=== PATIENT | female | born 1955 | race Caucasian/White ===

== ENCOUNTER 2022-07-18 20:16 | Inpatient (IN) | payer MEDICARE, OTHER ==
[~2022-07-18] VITALS: Ht 152.4 cm; Wt 57.2 kg
[2022-07-18] MEDS ORDERED: HALOPERIDOL LACTATE 5 MG/1 ML VIAL IM ONE (21:00)
[2022-07-18] MEDS ORDERED: diphenhydrAMINE 50 MG/1 ML VIAL IM ONE (21:00)
[2022-07-18] MEDS ORDERED: LORAZEPAM 2 MG/1 ML VIAL IM ONE (21:00)
[2022-07-18] MEDS ORDERED: LORAZEPAM 2 MG/1 ML VIAL ONE (21:02)
[2022-07-18] MEDS ORDERED: diphenhydrAMINE 50 MG/1 ML VIAL ONE (21:03)
[2022-07-18] MEDS ORDERED: HALOPERIDOL LACTATE 5 MG/1 ML VIAL ONE (21:04)
[2022-07-18 22:37] LABS: HEMATOCRIT 32.9 % (31.2-41.9); MEAN CORPUSCULAR HEMOGLOBIN 31.1 uug (24.7-32.8); MEAN CORPUSCULAR VOLUME 91.6 fL (75.5-95.3); PLATELET COUNT (AUTO) 178 K/uL (179-408)
[2022-07-18 22:50] LABS: ETHANOL < 3 MG/DL (0-0)
[2022-07-18 22:51] LABS: CARBON DIOXIDE 30 mmol/L (21-32); CHLORIDE 103 mmol/L (98-107); CREATININE 0.8 mg/dL (0.6-1.3); GLUCOSE 113 mg/dL (74-106); POTASSIUM 3.4 mmol/L (3.5-5.1); UREA NITROGEN, BLOOD 21 mg/dL (7-18)
[2022-07-18 22:52] LABS: MAGNESIUM 1.4 mg/dL (1.8-2.4)
[2022-07-18 22:56] LABS: ALANINE AMINOTRANSFERASE 12 U/L (14-59); ALKALINE PHOSPHATASE 51 U/L (50-136); ASPARTATE AMINOTRANSFERASE 8 U/L (15-37); BILIRUBIN,DIRECT 0.1 mg/dL (0.0-0.2); BILIRUBIN,TOTAL 0.3 mg/dL (0.2-1.0); TOTAL PROTEIN, SERUM 6.4 g/dL (6.4-8.2)
[2022-07-18 23:00] LABS: ACETAMINOPHEN < 2.0 ug/mL (10-30)
[2022-07-18] MEDS: POTASSIUM CHLORIDE 50 ML IV SCH (23:15)
[2022-07-18] MEDS: MAGNESIUM SULFATE/D5W 100 ML IV SCH (23:15)
[2022-07-19 00:07] LABS: *BILIRUBIN,URIN NEGATIVE (NEGATIVE); *BLOOD, URINE NEGATIVE (NEGATIVE); *CLARITY,URINE CLEAR (CLEAR); *COLOR,URINE YELLOW (YELLOW); *KETONES,URINE NEGATIVE (NEGATIVE); *UROBILINOGEN,URINE 0.2 E.U./dl (NORMAL); LEUKOCYTE ESTERASE ,URINE NEGATIVE (NEGATIVE); NITRITE, URINE NEGATIVE (NEGATIVE); PH,URINE 7.5 (5.0-8.0); UGLUCOSE NEGATIVE (NEGATIVE)
[2022-07-19] MEDS: MAGNESIUM SULFATE/D5W 100 ML IV SCH ×2 (00:15→05:50)
[2022-07-19] MEDS: POTASSIUM CHLORIDE 50 ML IV SCH ×3 (00:15→02:15)
[2022-07-19 00:17] LABS: *AMPHETAMINE, URINE NEGATIVE (NEGATIVE); *CANNABINOID, URINE NEGATIVE (NEGATIVE); *COCCAINE, URINE NEGATIVE (NEGATIVE); *PHENCYCLIDINE SCREEN,URINE NEGATIVE (NEGATIVE)
[2022-07-19] MEDS ORDERED: POTASSIUM CHLORIDE 50 ML ONE ×2 (01:06→02:17)
[2022-07-19] MEDS ORDERED: MAGNESIUM SULFATE/D5W 100 ML ONE (01:06)
[2022-07-19] MEDS ORDERED: MAGNESIUM SULFATE/D5W 200 ML ONE (02:18)
[2022-07-19] MEDS ORDERED: COGENTIN PO (02:28)
[2022-07-19] MEDS ORDERED: HYDR12.55 PO (02:28)
[2022-07-19] MEDS ORDERED: BISA10SU61 RC (02:28)
[2022-07-19] MEDS ORDERED: METF-441 PO (02:28)
[2022-07-19] MEDS ORDERED: LINA5TAB PO (02:28)
[2022-07-19] MEDS ORDERED: ACET-73 PO (02:28)
[2022-07-19] MEDS ORDERED: DIVA125C2 PO (02:28)
[2022-07-19] MEDS ORDERED: QUET25TA PO (02:28)
[2022-07-19] MEDS ORDERED: CYAN100T44 PO (02:28)
[2022-07-19] MEDS ORDERED: METO25TA6 PO (02:28)
[2022-07-19] MEDS ORDERED: BUSP10TA3 PO (02:28)
[2022-07-19] MEDS ORDERED: MAGN400C PO (02:28)
[2022-07-19] MEDS ORDERED: FAMO-132 PO (02:28)
[2022-07-19] MEDS ORDERED: MAGN400O6 PO (02:28)
[2022-07-19] MEDS ORDERED: MULT-594 PO (02:28)
[2022-07-19] MEDS ORDERED: NA P133E RC (02:28)
[2022-07-19] MEDS ORDERED: LACT10SO3 PO (02:28)
[2022-07-19] MEDS ORDERED: POTASSIUM BICARBONATE/CIT AC 25 MEQ TABLET.EFF PO ONE (04:00)
[2022-07-19] MEDS ORDERED: POTASSIUM BICARBONATE/CIT AC 25 MEQ TABLET.EFF ONE (04:13)
[2022-07-19] MEDS ORDERED: FLUORESCEIN SODIUM 1 MG STRIP ONE (07:57)
[2022-07-19] MEDS ORDERED: TETRACAINE HCL 0.5% OPHT DROP 2 ML BOTTLE ONE (07:57)
[2022-07-19 13:15] VITALS: BP 133/75
[2022-07-19] MEDS ORDERED: MAG HYDROX/AL HYDROX/SIMETH 30 ML LIQUID UDC PO PRN (13:30)
[2022-07-19] MEDS ORDERED: MAGNESIUM HYDROXIDE 30 ML LIQUID UDC PO PRN (13:30)
[2022-07-19] MEDS ORDERED: BLOOD SUGAR DIAGNOSTIC 1 EACH STRIP VI ONE (13:30)
[2022-07-19] MEDS ORDERED: LORAZEPAM 0.5 MG TABLET PO PRN (13:30)
[2022-07-19] MEDS: LORAZEPAM 1 MG TABLET PO PRN ×2 (14:07→20:30)
[2022-07-19 15:04] VITALS: BP 132/61
[2022-07-19] MEDS: OLANZAPINE ZYDIS 5 MG TAB.RAPDIS PO SCH (20:30)
[2022-07-19 20:35] VITALS: BP 141/72
[2022-07-20] MEDS: LORAZEPAM 1 MG TABLET PO PRN ×2 (05:41→15:33)
[2022-07-20 07:30] VITALS: BP_SYST 133; BP_SYST 142; BP_DIAS 53; BP_DIAS 75
[2022-07-20] MEDS: busPIRone 10 MG TABLET PO SCH ×2 (12:19→16:28)
[2022-07-20] MEDS: DIVALPROEX SPRINKLE 125 MG CAP.SPRINK PO SCH ×2 (12:19→20:28)
[2022-07-20 16:00] VITALS: BP 142/53
[2022-07-20 20:23] VITALS: BP 113/53
[2022-07-20] MEDS: OLANZAPINE ZYDIS 5 MG TAB.RAPDIS PO SCH (20:28)
[2022-07-20] MEDS: TEMAZEPAM 7.5 MG CAPSULE PO PRN (22:06)
[2022-07-21 07:30] VITALS: BP 121/71
[2022-07-21] MEDS: LORAZEPAM 1 MG TABLET PO PRN ×3 (07:51→21:35)
[2022-07-21] MEDS ORDERED: MAGNESIUM HYDROXIDE 30 ML LIQUID UDC PO PRN (09:00)
[2022-07-21] MEDS ORDERED: Medication Not On Formulary EA (Multivitamins (Multivitamin) 1 TAB) PO SCH (09:00)
[2022-07-21] MEDS ORDERED: Medication Not On Formulary EA (Lactulose (Duphalac) 30 ML) PO SCH (09:00)
[2022-07-21] MEDS ORDERED: Medication Not On Formulary EA (Hydrochlorothiazide 12.5 MG) PO SCH (09:00)
[2022-07-21] MEDS ORDERED: FLEET ENEMA 133 ML BOTTLE RC PRN (09:00)
[2022-07-21] MEDS ORDERED: BISACODYL 10 MG SUPP.RECT RC PRN (09:00)
[2022-07-21] MEDS ORDERED: CYANOCOBALAMIN 100 MCG TABLET PO SCH (09:00)
[2022-07-21] MEDS: FAMOTIDINE 20 MG TABLET PO SCH (09:14)
[2022-07-21] MEDS: MULTIVITAMINS,THERAPEUTIC TABLET PO SCH (09:14)
[2022-07-21] MEDS: DIVALPROEX SPRINKLE 125 MG CAP.SPRINK PO SCH ×2 (09:14→20:44)
[2022-07-21] MEDS: LINAGLIPTIN 5 MG TABLET PO SCH (09:14)
[2022-07-21] MEDS: LACTULOSE 20 G/30 ML LIQUID UDC PO SCH ×2 (09:15→16:25)
[2022-07-21] MEDS: busPIRone 10 MG TABLET PO SCH ×2 (09:15→16:25)
[2022-07-21] MEDS: METOPROLOL TARTRATE 25 MG TABLET PO SCH ×2 (09:16→20:46)
[2022-07-21] MEDS: MAGNESIUM OXIDE 400 MG TABLET PO SCH ×2 (09:16→16:27)
[2022-07-21] MEDS: CYANOCOBALAMIN 1,000 MCG TABLET PO SCH (09:35)
[2022-07-21] MEDS: HYDROCHLOROTHIAZIDE 12.5 MG CAPSULE PO SCH (09:36)
[2022-07-21] MEDS: METFORMIN HCL 850 MG TABLET PO SCH ×2 (09:36→17:17)
[2022-07-21] MEDS: GLUCERNA SHAKE 237 ML CAN PO SCH ×2 (12:50→16:28)
[2022-07-21 16:00] VITALS: BP 118/61
[2022-07-21 20:28] VITALS: BP 121/67
[2022-07-21] MEDS: OLANZAPINE ZYDIS 5 MG TAB.RAPDIS PO SCH (20:46)
[2022-07-21] MEDS: REMEDY ESSENTIAL ZINC PASTE 113 GM TOP SCH (21:26)
[2022-07-22 08:00] VITALS: BP 128/57
[2022-07-22] MEDS: DIVALPROEX SPRINKLE 125 MG CAP.SPRINK PO SCH ×2 (08:18→20:06)
[2022-07-22] MEDS: MAGNESIUM OXIDE 400 MG TABLET PO SCH ×2 (08:18→16:19)
[2022-07-22] MEDS: MULTIVITAMINS,THERAPEUTIC TABLET PO SCH (08:18)
[2022-07-22] MEDS: LINAGLIPTIN 5 MG TABLET PO SCH (08:18)
[2022-07-22] MEDS: METOPROLOL TARTRATE 25 MG TABLET PO SCH ×2 (08:19→20:06)
[2022-07-22] MEDS: LORAZEPAM 1 MG TABLET PO PRN ×3 (08:19→20:06)
[2022-07-22] MEDS: CYANOCOBALAMIN 1,000 MCG TABLET PO SCH (08:20)
[2022-07-22] MEDS: busPIRone 10 MG TABLET PO SCH ×2 (08:20→16:17)
[2022-07-22] MEDS: GLUCERNA SHAKE 237 ML CAN PO SCH ×3 (08:21→16:22)
[2022-07-22] MEDS: LACTULOSE 20 G/30 ML LIQUID UDC PO SCH ×2 (08:40→16:23)
[2022-07-22] MEDS: HYDROCHLOROTHIAZIDE 12.5 MG CAPSULE PO SCH (08:58)
[2022-07-22] MEDS: REMEDY ESSENTIAL ZINC PASTE 113 GM TOP SCH ×2 (08:58→20:07)
[2022-07-22] MEDS: METFORMIN HCL 850 MG TABLET PO SCH ×2 (08:58→18:36)
[2022-07-22] MEDS: FAMOTIDINE 20 MG TABLET PO SCH (09:20)
[2022-07-22 15:13] LABS: CREATININE 0.8 mg/dL (0.6-1.3); POTASSIUM 3.9 mmol/L (3.5-5.1)
[2022-07-22 16:05] VITALS: BP 125/51
[2022-07-22 19:56] VITALS: BP 122/62
[2022-07-22] MEDS: OLANZAPINE ZYDIS 5 MG TAB.RAPDIS PO SCH (20:06)
[2022-07-23] MEDS: HYDROCHLOROTHIAZIDE 12.5 MG CAPSULE PO SCH (08:17)
[2022-07-23] MEDS: CYANOCOBALAMIN 1,000 MCG TABLET PO SCH (08:20)
[2022-07-23] MEDS: DIVALPROEX SPRINKLE 125 MG CAP.SPRINK PO SCH ×2 (08:20→20:02)
[2022-07-23] MEDS: busPIRone 10 MG TABLET PO SCH ×2 (08:20→16:23)
[2022-07-23] MEDS: MAGNESIUM OXIDE 400 MG TABLET PO SCH ×2 (08:20→16:27)
[2022-07-23] MEDS: FAMOTIDINE 20 MG TABLET PO SCH (08:20)
[2022-07-23] MEDS: LACTULOSE 20 G/30 ML LIQUID UDC PO SCH (08:23)
[2022-07-23] MEDS: METOPROLOL TARTRATE 25 MG TABLET PO SCH ×2 (08:35→20:02)
[2022-07-23] MEDS: LINAGLIPTIN 5 MG TABLET PO SCH (08:35)
[2022-07-23] MEDS: REMEDY ESSENTIAL ZINC PASTE 113 GM TOP SCH ×2 (08:36→20:03)
[2022-07-23] MEDS: MULTIVITAMINS,THERAPEUTIC TABLET PO SCH (08:36)
[2022-07-23] MEDS: METFORMIN HCL 850 MG TABLET PO SCH ×2 (08:37→17:16)
[2022-07-23] MEDS: GLUCERNA SHAKE 237 ML CAN PO SCH ×3 (08:39→16:25)
[2022-07-23 08:54] VITALS: BP 135/85
[2022-07-23] MEDS: LORAZEPAM 1 MG TABLET PO PRN ×3 (09:39→20:02)
[2022-07-23] MEDS ORDERED: LACTULOSE 20 G/30 ML LIQUID UDC PO PRN (09:45)
[2022-07-23] MEDS: ACETAMINOPHEN 325 MG TABLET PO PRN ×2 (11:03→21:41)
[2022-07-23 15:16] VITALS: BP 120/58
[2022-07-23] MEDS: OLANZAPINE ZYDIS 5 MG TAB.RAPDIS PO SCH (20:02)
[2022-07-23 20:03] VITALS: BP 141/62
[2022-07-23] MEDS: TEMAZEPAM 7.5 MG CAPSULE PO PRN (21:41)
[2022-07-24 07:38] VITALS: BP 145/75
[2022-07-24] MEDS: ACETAMINOPHEN 325 MG TABLET PO PRN (07:57)
[2022-07-24] MEDS: LORAZEPAM 1 MG TABLET PO PRN ×2 (07:57→21:11)
[2022-07-24] MEDS: busPIRone 10 MG TABLET PO SCH ×2 (08:17→16:31)
[2022-07-24] MEDS: METOPROLOL TARTRATE 25 MG TABLET PO SCH ×2 (08:17→21:12)
[2022-07-24] MEDS: DIVALPROEX SPRINKLE 125 MG CAP.SPRINK PO SCH ×2 (08:17→21:11)
[2022-07-24] MEDS: CYANOCOBALAMIN 1,000 MCG TABLET PO SCH (08:18)
[2022-07-24] MEDS: HYDROCHLOROTHIAZIDE 12.5 MG CAPSULE PO SCH (08:18)
[2022-07-24] MEDS: METFORMIN HCL 850 MG TABLET PO SCH ×2 (08:18→17:03)
[2022-07-24] MEDS: FAMOTIDINE 20 MG TABLET PO SCH (08:18)
[2022-07-24] MEDS: LINAGLIPTIN 5 MG TABLET PO SCH (08:18)
[2022-07-24] MEDS: MAGNESIUM OXIDE 400 MG TABLET PO SCH ×2 (08:20→16:31)
[2022-07-24] MEDS: GLUCERNA SHAKE 237 ML CAN PO SCH ×3 (08:20→16:33)
[2022-07-24] MEDS: OLANZAPINE ZYDIS 5 MG TAB.RAPDIS PO SCH ×2 (08:20→16:31)
[2022-07-24] MEDS: MULTIVITAMINS,THERAPEUTIC TABLET PO SCH (08:21)
[2022-07-24] MEDS: REMEDY ESSENTIAL ZINC PASTE 113 GM TOP SCH ×2 (08:21→21:13)
[2022-07-24 11:33] LABS: HEMATOCRIT 37.2 % (31.2-41.9); MEAN CORPUSCULAR HEMOGLOBIN 30.5 uug (24.7-32.8); MEAN CORPUSCULAR VOLUME 92.1 fL (75.5-95.3); PLATELET COUNT (AUTO) 203 K/uL (179-408)
[2022-07-24 12:01] LABS: BILIRUBIN,DIRECT 0.1 mg/dL (0.0-0.2); BILIRUBIN,TOTAL 0.2 mg/dL (0.2-1.0); CREATININE 0.7 mg/dL (0.6-1.3); MAGNESIUM 1.5 mg/dL (1.8-2.4); PHOSPHOROUS 3.6 mg/dL (2.5-4.9); POTASSIUM 4.2 mmol/L (3.5-5.1); TOTAL PROTEIN, SERUM 6.9 g/dL (6.4-8.2)
[2022-07-24 16:00] VITALS: BP 114/62
[2022-07-24 20:10] VITALS: BP 152/66
[2022-07-24] MEDS: TEMAZEPAM 7.5 MG CAPSULE PO PRN (21:36)
[2022-07-25 07:50] VITALS: BP 134/65
[2022-07-25] MEDS: LORAZEPAM 1 MG TABLET PO PRN (08:24)
[2022-07-25] MEDS: ACETAMINOPHEN 325 MG TABLET PO PRN (08:24)
[2022-07-25] MEDS: METOPROLOL TARTRATE 25 MG TABLET PO SCH ×2 (08:49→20:37)
[2022-07-25] MEDS: HYDROCHLOROTHIAZIDE 12.5 MG CAPSULE PO SCH (08:49)
[2022-07-25] MEDS: METFORMIN HCL 850 MG TABLET PO SCH ×2 (08:49→17:20)
[2022-07-25] MEDS: busPIRone 10 MG TABLET PO SCH ×2 (08:49→16:25)
[2022-07-25] MEDS: DIVALPROEX SPRINKLE 125 MG CAP.SPRINK PO SCH ×2 (08:49→20:38)
[2022-07-25] MEDS: MAGNESIUM OXIDE 400 MG TABLET PO SCH ×2 (08:50→16:25)
[2022-07-25] MEDS: OLANZAPINE ZYDIS 5 MG TAB.RAPDIS PO SCH ×2 (08:50→16:25)
[2022-07-25] MEDS: LINAGLIPTIN 5 MG TABLET PO SCH (08:50)
[2022-07-25] MEDS: FAMOTIDINE 20 MG TABLET PO SCH (08:50)
[2022-07-25] MEDS: CYANOCOBALAMIN 1,000 MCG TABLET PO SCH (08:51)
[2022-07-25] MEDS: GLUCERNA SHAKE 237 ML CAN PO SCH ×3 (08:51→16:26)
[2022-07-25] MEDS: MULTIVITAMINS,THERAPEUTIC TABLET PO SCH (08:52)
[2022-07-25] MEDS: REMEDY ESSENTIAL ZINC PASTE 113 GM TOP SCH ×2 (08:52→20:38)
[2022-07-25 15:09] VITALS: BP 114/56
[2022-07-25 20:00] VITALS: BP 118/49
[2022-07-25 21:33] VITALS: BP 118/49
[2022-07-25] MEDS: TEMAZEPAM 7.5 MG CAPSULE PO PRN (22:18)
[2022-07-26 07:54] VITALS: BP 127/49
[2022-07-26] MEDS: DIVALPROEX SPRINKLE 125 MG CAP.SPRINK PO SCH ×2 (09:00→20:18)
[2022-07-26] MEDS: METFORMIN HCL 850 MG TABLET PO SCH ×2 (09:01→17:21)
[2022-07-26] MEDS: busPIRone 10 MG TABLET PO SCH ×2 (09:01→17:21)
[2022-07-26] MEDS: CYANOCOBALAMIN 1,000 MCG TABLET PO SCH (09:01)
[2022-07-26] MEDS: FAMOTIDINE 20 MG TABLET PO SCH (09:01)
[2022-07-26] MEDS: GLUCERNA SHAKE 237 ML CAN PO SCH ×3 (09:02→17:19)
[2022-07-26] MEDS: HYDROCHLOROTHIAZIDE 12.5 MG CAPSULE PO SCH (09:03)
[2022-07-26] MEDS: MAGNESIUM OXIDE 400 MG TABLET PO SCH ×2 (09:03→17:23)
[2022-07-26] MEDS: MULTIVITAMINS,THERAPEUTIC TABLET PO SCH (09:12)
[2022-07-26] MEDS: METOPROLOL TARTRATE 25 MG TABLET PO SCH ×2 (09:12→20:18)
[2022-07-26] MEDS: OLANZAPINE ZYDIS 5 MG TAB.RAPDIS PO SCH ×2 (09:12→17:21)
[2022-07-26] MEDS: REMEDY ESSENTIAL ZINC PASTE 113 GM TOP SCH ×2 (09:13→21:14)
[2022-07-26] MEDS: LINAGLIPTIN 5 MG TABLET PO SCH (09:15)
[2022-07-26 16:00] VITALS: BP 108/55
[2022-07-26] MEDS: LORAZEPAM 1 MG TABLET PO PRN (19:44)
[2022-07-26] MEDS: ACETAMINOPHEN 325 MG TABLET PO PRN (20:18)
[2022-07-26 20:46] VITALS: BP 131/55
[2022-07-26] MEDS: TEMAZEPAM 7.5 MG CAPSULE PO PRN (21:14)
[2022-07-27 02:56] LABS: *BILIRUBIN,URIN NEGATIVE (NEGATIVE); *BLOOD, URINE 3+ (NEGATIVE); *COLOR,URINE YELLOW (YELLOW); *KETONES,URINE NEGATIVE (NEGATIVE); *UROBILINOGEN,URINE 0.2 E.U./dl (NORMAL); LEUKOCYTE ESTERASE ,URINE 2+ (NEGATIVE); NITRITE, URINE NEGATIVE (NEGATIVE); UGLUCOSE NEGATIVE (NEGATIVE)
[2022-07-27 02:57] LABS: *CLARITY,URINE CLOUDY (CLEAR)
[2022-07-27 02:59] LABS: BACTERIA,URINE MANY /HPF (NONE SEEN); RBC,URINE TNTC /HPF (0-3); SQUAMOUS EPITHELIAL CELL,UR MANY /HPF (NONE SEEN); WBC,URINE 50-80 /HPF (0-3)
[2022-07-27 07:30] VITALS: BP 106/53
[2022-07-27] MEDS: LINAGLIPTIN 5 MG TABLET PO SCH (08:31)
[2022-07-27] MEDS: METFORMIN HCL 850 MG TABLET PO SCH ×2 (08:31→17:32)
[2022-07-27] MEDS: DIVALPROEX SPRINKLE 125 MG CAP.SPRINK PO SCH ×2 (08:31→20:20)
[2022-07-27] MEDS: FAMOTIDINE 20 MG TABLET PO SCH (08:32)
[2022-07-27] MEDS: CYANOCOBALAMIN 1,000 MCG TABLET PO SCH (08:33)
[2022-07-27] MEDS: OLANZAPINE ZYDIS 5 MG TAB.RAPDIS PO SCH ×2 (08:33→17:29)
[2022-07-27] MEDS: REMEDY ESSENTIAL ZINC PASTE 113 GM TOP SCH ×2 (08:33→20:20)
[2022-07-27] MEDS: HYDROCHLOROTHIAZIDE 12.5 MG CAPSULE PO SCH (08:34)
[2022-07-27] MEDS: METOPROLOL TARTRATE 25 MG TABLET PO SCH ×2 (08:35→20:20)
[2022-07-27] MEDS: MAGNESIUM OXIDE 400 MG TABLET PO SCH ×2 (08:35→17:30)
[2022-07-27] MEDS: MULTIVITAMINS,THERAPEUTIC TABLET PO SCH (08:38)
[2022-07-27] MEDS: busPIRone 10 MG TABLET PO SCH ×2 (08:38→17:31)
[2022-07-27] MEDS: GLUCERNA SHAKE 237 ML CAN PO SCH ×3 (08:39→17:31)
[2022-07-27] MEDS: LORAZEPAM 1 MG TABLET PO PRN ×2 (11:15→20:20)
[2022-07-27] MEDS: CEphaleXIN 500 MG CAPSULE PO SCH ×2 (14:10→21:31)
[2022-07-27 17:11] VITALS: BP 121/57
[2022-07-27 20:46] VITALS: BP 119/54
[2022-07-27] MEDS: ACETAMINOPHEN 325 MG TABLET PO PRN (21:31)
[2022-07-27] MEDS: TEMAZEPAM 7.5 MG CAPSULE PO PRN (21:31)
[2022-07-28] MEDS: LORAZEPAM 1 MG TABLET PO PRN (01:41)
[2022-07-28] MEDS: CEphaleXIN 500 MG CAPSULE PO SCH ×3 (06:08→21:06)
[2022-07-28 07:30] VITALS: BP 135/58
[2022-07-28] MEDS: DIVALPROEX SPRINKLE 125 MG CAP.SPRINK PO SCH ×2 (08:34→20:36)
[2022-07-28] MEDS: FAMOTIDINE 20 MG TABLET PO SCH (08:35)
[2022-07-28] MEDS: CYANOCOBALAMIN 1,000 MCG TABLET PO SCH (08:35)
[2022-07-28] MEDS: METFORMIN HCL 850 MG TABLET PO SCH ×2 (08:35→17:05)
[2022-07-28] MEDS: busPIRone 10 MG TABLET PO SCH ×2 (08:35→17:02)
[2022-07-28] MEDS: HYDROCHLOROTHIAZIDE 12.5 MG CAPSULE PO SCH (08:36)
[2022-07-28] MEDS: MAGNESIUM OXIDE 400 MG TABLET PO SCH ×2 (08:37→17:03)
[2022-07-28] MEDS: METOPROLOL TARTRATE 25 MG TABLET PO SCH ×2 (08:37→20:36)
[2022-07-28] MEDS: MULTIVITAMINS,THERAPEUTIC TABLET PO SCH (08:38)
[2022-07-28] MEDS: LINAGLIPTIN 5 MG TABLET PO SCH (08:38)
[2022-07-28] MEDS: OLANZAPINE ZYDIS 5 MG TAB.RAPDIS PO SCH ×2 (08:39→17:05)
[2022-07-28] MEDS: REMEDY ESSENTIAL ZINC PASTE 113 GM TOP SCH ×2 (08:40→20:41)
[2022-07-28] MEDS: GLUCERNA SHAKE 237 ML CAN PO SCH ×3 (08:42→17:03)
[2022-07-28 16:00] VITALS: BP 115/51
[2022-07-28 20:02] VITALS: BP 120/65
[2022-07-28] MEDS: TEMAZEPAM 7.5 MG CAPSULE PO PRN (21:05)
[2022-07-29] MEDS: CEphaleXIN 500 MG CAPSULE PO SCH ×3 (06:12→21:22)
[2022-07-29 07:37] VITALS: BP 132/56
[2022-07-29] MEDS: METFORMIN HCL 850 MG TABLET PO SCH ×2 (08:20→17:32)
[2022-07-29] MEDS: GLUCERNA SHAKE 237 ML CAN PO SCH ×3 (08:20→17:31)
[2022-07-29] MEDS: busPIRone 10 MG TABLET PO SCH ×2 (08:21→17:32)
[2022-07-29] MEDS: DIVALPROEX SPRINKLE 125 MG CAP.SPRINK PO SCH ×2 (08:21→20:09)
[2022-07-29] MEDS: METOPROLOL TARTRATE 25 MG TABLET PO SCH ×2 (08:22→20:09)
[2022-07-29] MEDS: MULTIVITAMINS,THERAPEUTIC TABLET PO SCH (08:23)
[2022-07-29] MEDS: HYDROCHLOROTHIAZIDE 12.5 MG CAPSULE PO SCH (08:23)
[2022-07-29] MEDS: FAMOTIDINE 20 MG TABLET PO SCH (08:23)
[2022-07-29] MEDS: CYANOCOBALAMIN 1,000 MCG TABLET PO SCH (08:24)
[2022-07-29] MEDS: OLANZAPINE ZYDIS 5 MG TAB.RAPDIS PO SCH ×2 (08:24→17:32)
[2022-07-29] MEDS: LINAGLIPTIN 5 MG TABLET PO SCH (08:24)
[2022-07-29] MEDS: MAGNESIUM OXIDE 400 MG TABLET PO SCH ×2 (08:26→17:35)
[2022-07-29] MEDS: REMEDY ESSENTIAL ZINC PASTE 113 GM TOP SCH ×2 (08:27→20:11)
[2022-07-29 16:32] VITALS: BP 129/44
[2022-07-29 20:00] VITALS: BP 127/68
[2022-07-29] MEDS: LORAZEPAM 1 MG TABLET PO PRN (21:15)
[2022-07-29] MEDS: TEMAZEPAM 7.5 MG CAPSULE PO PRN (22:45)
[2022-07-30] MEDS: CEphaleXIN 500 MG CAPSULE PO SCH ×3 (05:21→20:35)
[2022-07-30 07:42] LABS: HEMATOCRIT 36.2 % (31.2-41.9); MEAN CORPUSCULAR HEMOGLOBIN 30.6 uug (24.7-32.8); MEAN CORPUSCULAR VOLUME 91.9 fL (75.5-95.3); PLATELET COUNT (AUTO) 212 K/uL (179-408)
[2022-07-30 07:53] VITALS: BP 132/53
[2022-07-30 07:57] LABS: BILIRUBIN,TOTAL 0.2 mg/dL (0.2-1.0); CREATININE 0.8 mg/dL (0.6-1.3); POTASSIUM 3.8 mmol/L (3.5-5.1); TOTAL PROTEIN, SERUM 7.2 g/dL (6.4-8.2)
[2022-07-30] MEDS: busPIRone 10 MG TABLET PO SCH ×2 (08:47→17:47)
[2022-07-30] MEDS: DIVALPROEX SPRINKLE 125 MG CAP.SPRINK PO SCH ×2 (08:47→20:35)
[2022-07-30] MEDS: LINAGLIPTIN 5 MG TABLET PO SCH (08:47)
[2022-07-30] MEDS: MAGNESIUM OXIDE 400 MG TABLET PO SCH ×2 (08:47→17:47)
[2022-07-30] MEDS: MULTIVITAMINS,THERAPEUTIC TABLET PO SCH (08:47)
[2022-07-30] MEDS: CYANOCOBALAMIN 1,000 MCG TABLET PO SCH (08:47)
[2022-07-30] MEDS: METOPROLOL TARTRATE 25 MG TABLET PO SCH ×2 (08:48→20:36)
[2022-07-30] MEDS: REMEDY ESSENTIAL ZINC PASTE 113 GM TOP SCH ×2 (08:49→20:51)
[2022-07-30] MEDS: OLANZAPINE ZYDIS 5 MG TAB.RAPDIS PO SCH ×2 (08:49→17:47)
[2022-07-30] MEDS: METFORMIN HCL 850 MG TABLET PO SCH ×2 (08:49→17:47)
[2022-07-30] MEDS: HYDROCHLOROTHIAZIDE 12.5 MG CAPSULE PO SCH (08:49)
[2022-07-30] MEDS: GLUCERNA SHAKE 237 ML CAN PO SCH ×2 (08:51→13:25)
[2022-07-30] MEDS: FAMOTIDINE 20 MG TABLET PO SCH (08:55)
[2022-07-30 16:34] VITALS: BP 98/71
[2022-07-30 19:55] VITALS: BP 138/54
[2022-07-30] MEDS: LORAZEPAM 1 MG TABLET PO PRN (20:35)
[2022-07-31] MEDS: TEMAZEPAM 7.5 MG CAPSULE PO PRN ×2 (00:21→23:06)
[2022-07-31] MEDS: CEphaleXIN 500 MG CAPSULE PO SCH ×3 (06:28→21:16)
[2022-07-31 07:44] VITALS: BP 111/42
[2022-07-31] MEDS: LINAGLIPTIN 5 MG TABLET PO SCH (08:25)
[2022-07-31] MEDS: DIVALPROEX SPRINKLE 125 MG CAP.SPRINK PO SCH ×2 (08:25→21:18)
[2022-07-31] MEDS: busPIRone 10 MG TABLET PO SCH ×2 (08:26→17:00)
[2022-07-31] MEDS: OLANZAPINE ZYDIS 5 MG TAB.RAPDIS PO SCH ×2 (08:28→17:00)
[2022-07-31] MEDS: METOPROLOL TARTRATE 25 MG TABLET PO SCH ×2 (08:28→21:18)
[2022-07-31] MEDS: GLUCERNA SHAKE 237 ML CAN PO SCH (08:30)
[2022-07-31] MEDS: METFORMIN HCL 850 MG TABLET PO SCH ×2 (08:35→17:25)
[2022-07-31] MEDS: MAGNESIUM OXIDE 400 MG TABLET PO SCH ×2 (08:35→17:00)
[2022-07-31] MEDS: REMEDY ESSENTIAL ZINC PASTE 113 GM TOP SCH ×2 (09:00→21:18)
[2022-07-31] MEDS: FAMOTIDINE 20 MG TABLET PO SCH (09:00)
[2022-07-31] MEDS: MULTIVITAMINS,THERAPEUTIC TABLET PO SCH (09:00)
[2022-07-31] MEDS: HYDROCHLOROTHIAZIDE 12.5 MG CAPSULE PO SCH (09:00)
[2022-07-31] MEDS: CYANOCOBALAMIN 1,000 MCG TABLET PO SCH (09:00)
[2022-07-31 16:24] VITALS: BP 114/60
[2022-07-31 20:05] VITALS: BP 141/71
[2022-07-31] MEDS: LORAZEPAM 1 MG TABLET PO PRN (21:16)
[2022-08-01] MEDS: CEphaleXIN 500 MG CAPSULE PO SCH ×3 (06:13→21:12)
[2022-08-01 07:30] VITALS: BP 138/70
[2022-08-01] MEDS: CYANOCOBALAMIN 1,000 MCG TABLET PO SCH (08:29)
[2022-08-01] MEDS: DIVALPROEX SPRINKLE 125 MG CAP.SPRINK PO SCH ×2 (08:29→21:12)
[2022-08-01] MEDS: LINAGLIPTIN 5 MG TABLET PO SCH (08:29)
[2022-08-01] MEDS: MAGNESIUM OXIDE 400 MG TABLET PO SCH ×2 (08:30→17:04)
[2022-08-01] MEDS: METOPROLOL TARTRATE 25 MG TABLET PO SCH ×2 (08:30→21:12)
[2022-08-01] MEDS: OLANZAPINE ZYDIS 5 MG TAB.RAPDIS PO SCH ×2 (08:31→17:04)
[2022-08-01] MEDS: FAMOTIDINE 20 MG TABLET PO SCH (08:31)
[2022-08-01] MEDS: busPIRone 10 MG TABLET PO SCH ×2 (08:31→17:04)
[2022-08-01] MEDS: MULTIVITAMINS,THERAPEUTIC TABLET PO SCH (08:31)
[2022-08-01] MEDS: METFORMIN HCL 850 MG TABLET PO SCH ×2 (08:31→17:11)
[2022-08-01] MEDS: HYDROCHLOROTHIAZIDE 12.5 MG CAPSULE PO SCH (08:32)
[2022-08-01] MEDS: GLUCERNA SHAKE 237 ML CAN PO SCH (08:32)
[2022-08-01] MEDS: REMEDY ESSENTIAL ZINC PASTE 113 GM TOP SCH ×2 (08:33→21:13)
[2022-08-01 16:00] VITALS: BP 133/65
[2022-08-01 20:15] VITALS: BP 107/80
[2022-08-01] MEDS: LORAZEPAM 1 MG TABLET PO PRN (21:12)
[2022-08-01] MEDS: ACETAMINOPHEN 325 MG TABLET PO PRN (21:14)
[2022-08-02] MEDS: CEphaleXIN 500 MG CAPSULE PO SCH ×3 (06:47→21:32)
[2022-08-02 07:30] VITALS: BP 119/56
[2022-08-02] MEDS: DIVALPROEX SPRINKLE 125 MG CAP.SPRINK PO SCH ×2 (08:54→20:34)
[2022-08-02] MEDS: METFORMIN HCL 850 MG TABLET PO SCH ×2 (08:55→17:12)
[2022-08-02] MEDS: HYDROCHLOROTHIAZIDE 12.5 MG CAPSULE PO SCH (08:55)
[2022-08-02] MEDS: CYANOCOBALAMIN 1,000 MCG TABLET PO SCH (08:56)
[2022-08-02] MEDS: MAGNESIUM OXIDE 400 MG TABLET PO SCH ×2 (08:56→17:12)
[2022-08-02] MEDS: LINAGLIPTIN 5 MG TABLET PO SCH (08:56)
[2022-08-02] MEDS: FAMOTIDINE 20 MG TABLET PO SCH (08:56)
[2022-08-02] MEDS: MULTIVITAMINS,THERAPEUTIC TABLET PO SCH (08:57)
[2022-08-02] MEDS: REMEDY ESSENTIAL ZINC PASTE 113 GM TOP SCH ×2 (08:57→20:35)
[2022-08-02] MEDS: busPIRone 10 MG TABLET PO SCH ×2 (08:57→17:12)
[2022-08-02] MEDS: METOPROLOL TARTRATE 25 MG TABLET PO SCH ×2 (08:57→20:36)
[2022-08-02] MEDS: OLANZAPINE ZYDIS 5 MG TAB.RAPDIS PO SCH ×2 (08:59→17:12)
[2022-08-02] MEDS: GLUCERNA SHAKE 237 ML CAN PO SCH (08:59)
[2022-08-02 16:00] VITALS: BP 116/58
[2022-08-02 20:12] VITALS: BP 148/68
[2022-08-02] MEDS: TEMAZEPAM 7.5 MG CAPSULE PO PRN (21:45)
[2022-08-02] MEDS: LORAZEPAM 1 MG TABLET PO PRN (22:42)
[2022-08-03] MEDS: CEphaleXIN 500 MG CAPSULE PO SCH (06:14)
[2022-08-03 07:48] VITALS: BP 135/61
[2022-08-03] MEDS: HYDROCHLOROTHIAZIDE 12.5 MG CAPSULE PO SCH (08:50)
[2022-08-03] MEDS: MAGNESIUM OXIDE 400 MG TABLET PO SCH (08:50)
[2022-08-03] MEDS: METFORMIN HCL 850 MG TABLET PO SCH (08:51)
[2022-08-03] MEDS: busPIRone 10 MG TABLET PO SCH (08:51)
[2022-08-03] MEDS: CYANOCOBALAMIN 1,000 MCG TABLET PO SCH (08:51)
[2022-08-03 08:52] VITALS: BP 135/61
[2022-08-03] MEDS: DIVALPROEX SPRINKLE 125 MG CAP.SPRINK PO SCH (08:52)
[2022-08-03] MEDS: METOPROLOL TARTRATE 25 MG TABLET PO SCH (08:52)
[2022-08-03] MEDS: MULTIVITAMINS,THERAPEUTIC TABLET PO SCH (08:52)
[2022-08-03] MEDS: FAMOTIDINE 20 MG TABLET PO SCH (08:53)
[2022-08-03] MEDS: LINAGLIPTIN 5 MG TABLET PO SCH (08:57)
[2022-08-03] MEDS: GLUCERNA SHAKE 237 ML CAN PO SCH (08:59)
[2022-08-03] MEDS: REMEDY ESSENTIAL ZINC PASTE 113 GM TOP SCH (09:08)
[2022-08-03] MEDS: OLANZAPINE ZYDIS 5 MG TAB.RAPDIS PO SCH (09:12)
== END 2022-08-03 11:45 | DRG 885 ==
LOC: ER 20:19 → GPS 07-19 12:14
PROVIDERS: ADMIT Psychiatry & Neurology Psychiatry; ATTEND Internal Medicine
DX: F29 Unspecified psychosis not due to a substance or known physiological condition (principal); N39.0 Urinary tract infection, site not specified; F02.811 Dementia in other diseases classified elsewhere, unspecified severity, with agitation; E11.42 Type 2 diabetes mellitus with diabetic polyneuropathy; G30.9 Alzheimer's disease, unspecified; F02.80 Dementia in other diseases classified elsewhere, unspecified severity, without behavioral disturbance, psychotic disturbance, mood disturbance, and anxiety; F39 Unspecified mood [affective] disorder; B96.89 Other specified bacterial agents as the cause of diseases classified elsewhere; J45.909 Unspecified asthma, uncomplicated; Z79.84 Long term (current) use of oral hypoglycemic drugs; Z79.899 Other long term (current) drug therapy; F25.9 Schizoaffective disorder, unspecified; E87.6 Hypokalemia; E83.42 Hypomagnesemia; E78.5 Hyperlipidemia, unspecified; I10 Essential (primary) hypertension; Z91.81 History of falling; K21.9 Gastro-esophageal reflux disease without esophagitis
CPT/HCPCS: 36415; 70450; 71045; 80164; 83735; 84100; 85025; 93005; A4663; C1758; G0480; J1200; J1630; J2060; J3475; J3480